=== PATIENT | male | born 1995 | race Caucasian/White ===

== ENCOUNTER 2019-12-08 13:18 | Emergency (ER) | payer MEDICAID ==
[~2019-12-08] VITALS: Ht 175.3 cm; Wt 54.4 kg
[2019-12-08 13:18] VITALS: BP_SYST 143
[2019-12-08 15:53] VITALS: BP_SYST 143
== END 2019-12-08 15:54 | disposition home or self-care (01) ==
LOC: SED 13:18
DX: R45.851 Suicidal ideations (principal)
CPT/HCPCS: 99283

== ENCOUNTER 2023-03-08 11:18 | Emergency (ER) | payer MEDICAID ==
[~2023-03-08] VITALS: Ht 177.8 cm; Wt 59.0 kg
[2023-03-08 11:23] VITALS: BP_SYST 123; PULSE 103; RESP 16; TEMP 98.5; O2SAT 99
[2023-03-08] MEDS ORDERED: IBUP-1969 PO (12:53)
[2023-03-08 13:03] VITALS: BP_SYST 118; PULSE 94; RESP 17; TEMP 98.7; O2SAT 99
== END 2023-03-08 13:03 | disposition home or self-care (01) ==
LOC: SED 11:18
DX: S43.122A Dislocation of left acromioclavicular joint, 100%-200% displacement, initial encounter (principal); S43.52XA Sprain of left acromioclavicular joint, initial encounter; Z79.899 Other long term (current) drug therapy; W24.0XXA Contact with lifting devices, not elsewhere classified, initial encounter; Y93.89 Activity, other specified; Y92.89 Other specified places as the place of occurrence of the external cause; Y99.8 Other external cause status
CPT/HCPCS: 73030; 99283